=== PATIENT | female | born 1980 | race Caucasian/White ===

== ENCOUNTER → 2021-09-01 | Outpatient (CLI) | payer OTHER ==
[2021-09-01 13:01] LABS: HEMOGLOBIN 16.3 gm/dl (12.3-15.3); RED BLOOD COUNT 5.33 M/UL (4.00-5.10); WHITE BLOOD COUNT 12.4 K/UL (4.5-11.0)
[2021-09-01 13:21] LABS: BUN/CREATININE RATIO 13 (0-10)
[2021-09-02 08:13] LABS: RHEUMATOID ARTHRITIS FACTOR <10.0 IU/mL (<14.0); VITAMIN D, 25-HYDROXY 16.6 ng/mL (30.0-100.0)
== END ==
LOC: LAB 12:24
PROVIDERS: Nurse Practitioner Family
DX: M25.50 Pain in unspecified joint (principal); M79.10 Myalgia, unspecified site; E55.9 Vitamin D deficiency, unspecified; M79.673 Pain in unspecified foot
CPT/HCPCS: 73630; 80053; 82550; 82728; 83520; 85025; 85652; 86140; 86200; 86431

== ENCOUNTER → 2021-11-23 | Outpatient (CLI) | payer OTHER | LOC: HEART CORB 13:00 | DX: I73.9 Peripheral vascular disease, unspecified (principal) ==